=== PATIENT | male | born 1950 | race Caucasian/White ===

== ENCOUNTER 2021-02-12 13:22 | Inpatient (IN) ==
[2021-02-12 14:17] LABS: Basophils % 0.4 % (0.0-0.8); Eosinophils # 0.1 10*3/uL (0.0-0.87); Eosinophils % 1.1 % (0.00-10.9); Hematocrit 42.4 VOL% (42.0-52.0); Hemoglobin 13.7 GM/DL (14.0-18.0); Immature Granulocytes % 0.3 %; Immature Granulocytes Absolute 0.03 #; Lymphocytes # 1.8 10*3/uL (1.4-4.0); Lymphocytes % 18.9 % (21.2-54.2); Mean Corpuscular HGB Conc 32.3 GM/DL (32-36); Mean Corpuscular Volume 92.4 FL (87-102); Mean Platelet Volume 9.4 FL (9.6-12.0); Monocytes % 12.5 % (1.7-12.7); Neutrophils % 66.8 % (38.7-73.9); Platelet Count 307 T/CUMM (130-400); Red Blood Count 4.59 MC/CUMM (3.8-5.5); Red Cell Distribution Width 12.8 % (9.3-17.3); White Blood Count 9.7 T/CUMM (4-12)
[2021-02-12 14:42] LABS: Albumin 3.4 G/DL (3.4-5.0); Bilirubin,Total 0.5 MG/DL (0.20-1.00); Calcium 10.4 MG/DL (8.5-10.1); Potassium 3.6 MMOL/L (3.5-5.1); Thyroid Stimulating Hormone 1.39 uIU/ml (0.358-3.74); Total Protein 7.6 G/DL (6.4-8.2)
[2021-02-12] MEDS ORDERED: DEXAMETHASONE 10 MG/1 ML VIAL IV STA (14:42)
[2021-02-12 14:48] LABS: Folate 22.97 NG/ML (5.38-24.0)
[2021-02-12] MEDS ORDERED: ONDANSETRON 4 MG/2 ML VIAL IV PRN (15:54)
[2021-02-12] MEDS ORDERED: GLUCAGON 1 MG VIAL IM PRN ×2 (15:54→20:39)
[2021-02-12] MEDS ORDERED: DOCUSATE SODIUM 100 MG CAPSULE PO PRN (15:54)
[2021-02-12] MEDS ORDERED: hydrALAZINE 20 MG/1 ML VIAL IV PRN (15:54)
[2021-02-12] MEDS ORDERED: ACETAMINOPHEN 325 MG TABLET PO PRN (15:54)
[2021-02-12] MEDS ORDERED: ALUMINUM/MAGNES/SIMETH MAX STR 30 ML UDCUP PO PRN (15:54)
[2021-02-12] MEDS ORDERED: DEXTROSE 50% 25 GM/50 ML SYRINGE IV PRN (16:03)
[2021-02-12] MEDS ORDERED: LORazepam 2 MG/1 ML VIAL IV PRN (16:44)
[2021-02-12] MEDS: cefTRIAXone 1,000 MG in SODIUM CHLORIDE 0.9% 100 ML IV SCH (16:50)
[2021-02-12] MEDS: SODIUM CHLORIDE 0.9% 1,000 ML IV SCH (17:40)
[2021-02-12] MEDS: AZITHROMYCIN INJ 500 MG in SODIUM CHLORIDE 0.9% 250 ML IV SCH (17:42)
[2021-02-12] MEDS: MULTIVITAMIN (BEROCCA) TABLET PO SCH (17:55)
[2021-02-12] MEDS: THIAMINE 100 MG TABLET PO SCH (17:56)
[2021-02-12] MEDS: ALBUTEROL/IPRATROPIUM 3 ML NEB RESP TX SCH (19:31)
[2021-02-12] MEDS ORDERED: DEXTROSE 50% 25 GM/50 ML VIAL IV PRN (20:39)
[2021-02-12] MEDS: INSULIN REGULAR 100 UNIT/ML SUBCUT SCH (21:00)
[2021-02-12] MEDS: DEXAMETHASONE 4 MG/1 ML VIAL IV SCH (23:12)
[2021-02-12 23:15] LABS: Calcium 9.4 MG/DL (8.5-10.1); Osmolality,Calculated 288.1 MOS/KG (273-304); Potassium 3.7 MMOL/L (3.5-5.1)
[2021-02-13] MEDS: ALBUTEROL/IPRATROPIUM 3 ML NEB RESP TX SCH ×4 (00:50→19:39)
[2021-02-13 06:02] LABS: Basophils % 0.1 % (0.0-0.8); Hematocrit 38.4 VOL% (42.0-52.0); Hemoglobin 12.6 GM/DL (14.0-18.0); Immature Granulocytes % 0.6 %; Immature Granulocytes Absolute 0.06 #; Lymphocytes # 0.8 10*3/uL (1.4-4.0); Lymphocytes % 8.5 % (21.2-54.2); Mean Corpuscular HGB Conc 32.8 GM/DL (32-36); Mean Corpuscular Volume 92.5 FL (87-102); Mean Platelet Volume 9.6 FL (9.6-12.0); Monocytes % 3.4 % (1.7-12.7); Neutrophils % 87.4 % (38.7-73.9); Platelet Count 276 T/CUMM (130-400); Red Blood Count 4.15 MC/CUMM (3.8-5.5); Red Cell Distribution Width 12.6 % (9.3-17.3); White Blood Count 9.6 T/CUMM (4-12)
[2021-02-13] MEDS: SODIUM CHLORIDE 0.9% 1,000 ML IV SCH ×2 (06:03→17:09)
[2021-02-13 06:17] LABS: Albumin 2.8 G/DL (3.4-5.0); Bilirubin,Total 1.3 MG/DL (0.20-1.00); Calcium 9.2 MG/DL (8.5-10.1); Potassium 3.9 MMOL/L (3.5-5.1); Risk Ratio 2.97; Total Protein 6.6 G/DL (6.4-8.2)
[2021-02-13] MEDS: DEXAMETHASONE 4 MG/1 ML VIAL IV SCH ×2 (06:59→15:41)
[2021-02-13] MEDS: MULTIVITAMIN (BEROCCA) TABLET PO SCH (09:28)
[2021-02-13] MEDS: INSULIN REGULAR 100 UNIT/ML SUBCUT SCH ×4 (09:28→22:42)
[2021-02-13] MEDS: PANTOPRAZOLE 40 MG TABLET PO SCH (09:29)
[2021-02-13] MEDS: THIAMINE 100 MG TABLET PO SCH (09:29)
[2021-02-13] MEDS: cefTRIAXone 1,000 MG in SODIUM CHLORIDE 0.9% 100 ML IV SCH (15:42)
[2021-02-13] MEDS: AZITHROMYCIN INJ 500 MG in SODIUM CHLORIDE 0.9% 250 ML IV SCH (17:10)
[2021-02-14] MEDS: ALBUTEROL/IPRATROPIUM 3 ML NEB RESP TX SCH ×4 (00:04→20:35)
[2021-02-14] MEDS: INSULIN REGULAR 100 UNIT/ML SUBCUT SCH ×3 (13:09→21:35)
[2021-02-14] MEDS: MULTIVITAMIN (BEROCCA) TABLET PO SCH (13:09)
[2021-02-14] MEDS: THIAMINE 100 MG TABLET PO SCH (13:10)
[2021-02-14] MEDS: DEXAMETHASONE 4 MG/1 ML VIAL IV SCH ×4 (15:59→23:08)
[2021-02-14] MEDS: SODIUM CHLORIDE 0.9% 1,000 ML IV SCH ×2 (16:01→16:35)
[2021-02-14] MEDS: PANTOPRAZOLE 40 MG TABLET PO SCH (16:01)
[2021-02-14] MEDS: cefTRIAXone 1,000 MG in SODIUM CHLORIDE 0.9% 100 ML IV SCH (16:35)
[2021-02-14] MEDS: AZITHROMYCIN INJ 500 MG in SODIUM CHLORIDE 0.9% 250 ML IV SCH (18:22)
[2021-02-15] MEDS: SODIUM CHLORIDE 0.9% 1,000 ML IV SCH ×2 (01:19→11:05)
[2021-02-15] MEDS: ALBUTEROL/IPRATROPIUM 3 ML NEB RESP TX SCH ×4 (01:40→19:20)
[2021-02-15] MEDS: DEXAMETHASONE 4 MG/1 ML VIAL IV SCH ×2 (06:12→16:10)
[2021-02-15 06:43] LABS: Basophils % 0.1 % (0.0-0.8); Hematocrit 35.6 VOL% (42.0-52.0); Hemoglobin 11.5 GM/DL (14.0-18.0); Immature Granulocytes % 0.7 %; Immature Granulocytes Absolute 0.08 #; Lymphocytes # 0.7 10*3/uL (1.4-4.0); Lymphocytes % 6.1 % (21.2-54.2); Mean Corpuscular HGB Conc 32.3 GM/DL (32-36); Mean Corpuscular Volume 93.4 FL (87-102); Mean Platelet Volume 9.9 FL (9.6-12.0); Monocytes % 5.5 % (1.7-12.7); Neutrophils % 87.6 % (38.7-73.9); Platelet Count 253 T/CUMM (130-400); Red Blood Count 3.81 MC/CUMM (3.8-5.5); Red Cell Distribution Width 13.3 % (9.3-17.3); White Blood Count 11.9 T/CUMM (4-12)
[2021-02-15 06:47] LABS: Total Protein 24 Hr Ur Result 140 MG/24HR (0-149.1); Total Volume,Urine 700 ML (400-2000)
[2021-02-15 06:58] LABS: Albumin 2.7 G/DL (3.4-5.0); Bilirubin,Total 1.1 MG/DL (0.20-1.00); Osmolality,Calculated 288.8 MOS/KG (273-304); Potassium 3.6 MMOL/L (3.5-5.1)
[2021-02-15] MEDS: INSULIN REGULAR 100 UNIT/ML SUBCUT SCH ×4 (08:59→20:45)
[2021-02-15 09:40] LABS: Total Protein (Chem) 7.7 G/DL (6.4-8.3)
[2021-02-15 09:45] LABS: 24 Hr Protein (Bench) 140 MG/24HR (0-149.1)
[2021-02-15 09:47] LABS: INR 1.1
[2021-02-15 11:28] LABS: Albumin (SPE) Rel % 59.5 %; Alpha 1 (SPE) Rel % 4.6 %; Alpha 2 (SPE) Rel % 13.3 %; Beta (SPE) Rel % 9.8 %; Gamma (SPE) Rel % 12.8 %
[2021-02-15 11:33] LABS: Albumin (SPE) 4.6 G/DL (3.2-5.3); Alpha 1 (SPE) 0.4 G/DL (0.1-0.4); Beta (SPE) 0.8 G/DL (0.5-1.1)
[2021-02-15] MEDS ORDERED: DIAZEPAM 5 MG TABLET PO ONE (12:13)
[2021-02-15] MEDS: MULTIVITAMIN (BEROCCA) TABLET PO SCH (15:36)
[2021-02-15] MEDS: PANTOPRAZOLE 40 MG TABLET PO SCH (15:36)
[2021-02-15] MEDS: THIAMINE 100 MG TABLET PO SCH (15:36)
[2021-02-15] MEDS: cefTRIAXone 1,000 MG in SODIUM CHLORIDE 0.9% 100 ML IV SCH (16:10)
[2021-02-15] MEDS: SODIUM CHLORIDE 0.45% 1,000 ML IV SCH (17:28)
[2021-02-15] MEDS: AZITHROMYCIN INJ 500 MG in SODIUM CHLORIDE 0.9% 250 ML IV SCH (18:02)
[2021-02-16] MEDS: DEXAMETHASONE 4 MG/1 ML VIAL IV SCH ×3 (00:14→15:54)
[2021-02-16] MEDS: ALBUTEROL/IPRATROPIUM 3 ML NEB RESP TX SCH ×4 (00:34→20:14)
[2021-02-16] MEDS: SODIUM CHLORIDE 0.9% 1,000 ML IV SCH ×3 (04:35→19:43)
[2021-02-16 06:52] LABS: Basophils % 0.1 % (0.0-0.8); Hematocrit 34.2 VOL% (42.0-52.0); Hemoglobin 11.1 GM/DL (14.0-18.0); Immature Granulocytes % 0.6 %; Immature Granulocytes Absolute 0.08 #; Lymphocytes # 0.7 10*3/uL (1.4-4.0); Lymphocytes % 5.7 % (21.2-54.2); Mean Corpuscular HGB Conc 32.5 GM/DL (32-36); Mean Corpuscular Volume 92.9 FL (87-102); Mean Platelet Volume 10.5 FL (9.6-12.0); Neutrophils % 86.6 % (38.7-73.9); Platelet Count 226 T/CUMM (130-400); Red Blood Count 3.68 MC/CUMM (3.8-5.5); Red Cell Distribution Width 13.3 % (9.3-17.3); White Blood Count 12.9 T/CUMM (4-12)
[2021-02-16 07:01] LABS: Albumin 2.6 G/DL (3.4-5.0); Bilirubin,Total 0.5 MG/DL (0.20-1.00); Calcium 9.1 MG/DL (8.5-10.1); Osmolality,Calculated 287.8 MOS/KG (273-304); Potassium 3.8 MMOL/L (3.5-5.1); Total Protein 5.9 G/DL (6.4-8.2)
[2021-02-16] MEDS: INSULIN REGULAR 100 UNIT/ML SUBCUT SCH ×4 (09:13→20:31)
[2021-02-16] MEDS: MULTIVITAMIN (BEROCCA) TABLET PO SCH (09:46)
[2021-02-16] MEDS: PANTOPRAZOLE 40 MG TABLET PO SCH (09:47)
[2021-02-16] MEDS: THIAMINE 100 MG TABLET PO SCH (09:47)
[2021-02-16] MEDS: SODIUM CHLORIDE 0.45% 1,000 ML IV SCH (14:25)
[2021-02-16] MEDS: cefTRIAXone 1,000 MG in SODIUM CHLORIDE 0.9% 100 ML IV SCH (15:47)
[2021-02-16] MEDS: AZITHROMYCIN INJ 500 MG in SODIUM CHLORIDE 0.9% 250 ML IV SCH (18:24)
[2021-02-16] MEDS: DEXAMETHASONE 4 MG TABLET PO SCH (20:58)
[2021-02-17] MEDS: SODIUM CHLORIDE 0.9% 1,000 ML IV SCH ×3 (00:33→12:51)
[2021-02-17] MEDS: ALBUTEROL/IPRATROPIUM 3 ML NEB RESP TX SCH ×4 (02:45→19:30)
[2021-02-17 05:46] LABS: Basophils % 0.1 % (0.0-0.8); Hematocrit 35.3 VOL% (42.0-52.0); Hemoglobin 11.4 GM/DL (14.0-18.0); Immature Granulocytes % 0.9 %; Lymphocytes # 0.6 10*3/uL (1.4-4.0); Lymphocytes % 5.2 % (21.2-54.2); Mean Corpuscular HGB Conc 32.3 GM/DL (32-36); Mean Corpuscular Volume 93.9 FL (87-102); Mean Platelet Volume 10.1 FL (9.6-12.0); Monocytes % 4.3 % (1.7-12.7); Neutrophils % 89.5 % (38.7-73.9); Platelet Count 232 T/CUMM (130-400); Red Blood Count 3.76 MC/CUMM (3.8-5.5); Red Cell Distribution Width 13.3 % (9.3-17.3); White Blood Count 11.7 T/CUMM (4-12)
[2021-02-17 06:01] LABS: Albumin 2.6 G/DL (3.4-5.0); Bilirubin,Total 0.8 MG/DL (0.20-1.00); Calcium 9.1 MG/DL (8.5-10.1); Potassium 3.7 MMOL/L (3.5-5.1)
[2021-02-17] MEDS: INSULIN REGULAR 100 UNIT/ML SUBCUT SCH ×4 (09:15→21:01)
[2021-02-17] MEDS: DEXAMETHASONE 4 MG TABLET PO SCH ×2 (10:55→21:04)
[2021-02-17] MEDS: PANTOPRAZOLE 40 MG TABLET PO SCH (10:55)
[2021-02-17] MEDS: THIAMINE 100 MG TABLET PO SCH (10:55)
[2021-02-17] MEDS: MULTIVITAMIN (BEROCCA) TABLET PO SCH (10:55)
[2021-02-17] MEDS: SODIUM CHLORIDE 0.45% 1,000 ML IV SCH (12:51)
[2021-02-17] MEDS: cefTRIAXone 1,000 MG in SODIUM CHLORIDE 0.9% 100 ML IV SCH (15:49)
[2021-02-17] MEDS: AZITHROMYCIN INJ 500 MG in SODIUM CHLORIDE 0.9% 250 ML IV SCH (19:02)
[2021-02-18] MEDS: ALBUTEROL/IPRATROPIUM 3 ML NEB RESP TX SCH ×4 (00:06→19:40)
[2021-02-18 05:50] LABS: Basophils % 0.1 % (0.0-0.8); Hematocrit 35.4 VOL% (42.0-52.0); Hemoglobin 11.6 GM/DL (14.0-18.0); Immature Granulocytes % 0.3 %; Immature Granulocytes Absolute 0.04 #; Lymphocytes # 0.6 10*3/uL (1.4-4.0); Lymphocytes % 5.2 % (21.2-54.2); Mean Corpuscular HGB Conc 32.8 GM/DL (32-36); Mean Corpuscular Volume 91.7 FL (87-102); Mean Platelet Volume 10.3 FL (9.6-12.0); Monocytes % 4.6 % (1.7-12.7); Neutrophils % 89.8 % (38.7-73.9); Platelet Count 236 T/CUMM (130-400); Red Blood Count 3.86 MC/CUMM (3.8-5.5); Red Cell Distribution Width 13.2 % (9.3-17.3)
[2021-02-18 06:20] LABS: Albumin 2.6 G/DL (3.4-5.0); Bilirubin,Total 0.8 MG/DL (0.20-1.00); Osmolality,Calculated 284.3 MOS/KG (273-304); Potassium 3.4 MMOL/L (3.5-5.1); Total Protein 5.9 G/DL (6.4-8.2)
[2021-02-18] MEDS: INSULIN REGULAR 100 UNIT/ML SUBCUT SCH ×4 (07:38→21:44)
[2021-02-18] MEDS ORDERED: POTASSIUM CHLORIDE 20 MEQ TABLET PO ONE (08:11)
[2021-02-18] MEDS: DEXAMETHASONE 4 MG TABLET PO SCH ×2 (13:11→20:52)
[2021-02-18] MEDS: MULTIVITAMIN (BEROCCA) TABLET PO SCH (13:11)
[2021-02-18] MEDS: PANTOPRAZOLE 40 MG TABLET PO SCH (13:11)
[2021-02-18] MEDS: THIAMINE 100 MG TABLET PO SCH (13:11)
[2021-02-18] MEDS: cefTRIAXone 1,000 MG in SODIUM CHLORIDE 0.9% 100 ML IV SCH (17:26)
[2021-02-18] MEDS: AZITHROMYCIN INJ 500 MG in SODIUM CHLORIDE 0.9% 250 ML IV SCH (19:41)
[2021-02-18] MEDS: SODIUM CHLORIDE 0.45% 1,000 ML IV SCH (19:43)
[2021-02-19] MEDS: ALBUTEROL/IPRATROPIUM 3 ML NEB RESP TX SCH ×3 (00:25→13:50)
[2021-02-19 04:22] LABS: Hematocrit 34.5 VOL% (42.0-52.0); Hemoglobin 11.4 GM/DL (14.0-18.0); Immature Granulocytes % 0.7 %; Immature Granulocytes Absolute 0.08 #; Lymphocytes # 0.6 10*3/uL (1.4-4.0); Mean Corpuscular Volume 91.5 FL (87-102); Mean Platelet Volume 10.2 FL (9.6-12.0); Monocytes % 3.9 % (1.7-12.7); Neutrophils % 90.4 % (38.7-73.9); Platelet Count 241 T/CUMM (130-400); Red Blood Count 3.77 MC/CUMM (3.8-5.5); Red Cell Distribution Width 13.2 % (9.3-17.3); White Blood Count 11.1 T/CUMM (4-12)
[2021-02-19 04:48] LABS: Albumin 2.5 G/DL (3.4-5.0); Bilirubin,Total 1.2 MG/DL (0.20-1.00); Calcium 8.9 MG/DL (8.5-10.1); Osmolality,Calculated 286.1 MOS/KG (273-304); Potassium 3.7 MMOL/L (3.5-5.1); Total Protein 5.8 G/DL (6.4-8.2)
[2021-02-19] MEDS: SODIUM CHLORIDE 0.45% 1,000 ML IV SCH (05:33)
[2021-02-19] MEDS: INSULIN REGULAR 100 UNIT/ML SUBCUT SCH ×2 (09:54→13:11)
[2021-02-19] MEDS: DEXAMETHASONE 4 MG TABLET PO SCH (09:55)
[2021-02-19] MEDS: THIAMINE 100 MG TABLET PO SCH (09:55)
[2021-02-19] MEDS: MULTIVITAMIN (BEROCCA) TABLET PO SCH (09:55)
[2021-02-19] MEDS: PANTOPRAZOLE 40 MG TABLET PO SCH (09:55)
[2021-02-19 13:48] VITALS: BP 150/80
== END 2021-02-19 15:40 | disposition home health service (06) | DRG 54 ==
LOC: N.ED 13:22 → N.EDINP 15:54 → SUATTDRO 15:54 → N.2E 16:58
PROVIDERS: ADMIT Internal Medicine; ATTEND Internal Medicine

== ENCOUNTER 2021-04-17 08:01 | Inpatient (IN) ==
[2021-04-17] MEDS ORDERED: PANTOPRAZOLE 40 MG VIAL IV STA (08:36)
[2021-04-17 09:26] LABS: Basophils % 0.1 % (0.0-0.8); Hematocrit 39.2 VOL% (42.0-52.0); Hemoglobin 12.7 GM/DL (14.0-18.0); Immature Granulocytes Absolute 0.18 #; Lymphocytes # 0.7 10*3/uL (1.4-4.0); Lymphocytes % 3.5 % (21.2-54.2); Mean Corpuscular HGB Conc 32.4 GM/DL (32-36); Mean Corpuscular Volume 90.5 FL (87-102); Mean Platelet Volume 9.4 FL (9.6-12.0); Monocytes % 8.4 % (1.7-12.7); Platelet Count 373 T/CUMM (130-400); Red Blood Count 4.33 MC/CUMM (3.8-5.5); Red Cell Distribution Width 14.6 % (9.3-17.3); White Blood Count 18.4 T/CUMM (4-12)
[2021-04-17 09:36] LABS: INR 1.2
[2021-04-17 09:50] LABS: Hypochromia 1+; Lymphocytes 3 % (20-55); Microcytosis 1+; Platelet Estimate Adequate; Segmented Neutrophils 91 % (50-85); Total Cells Counted 100
[2021-04-17 09:58] LABS: Albumin 2.7 G/DL (3.4-5.0); Bilirubin,Total 2.1 MG/DL (0.20-1.00); Osmolality,Calculated 292.5 MOS/KG (273-304); Potassium 3.3 MMOL/L (3.5-5.1); Total Protein 6.8 G/DL (6.4-8.2)
[2021-04-17] MEDS ORDERED: SODIUM CHLORIDE 0.9% 1,000 ML IV STA (10:05)
[2021-04-17] MEDS ORDERED: hydrALAZINE 20 MG/1 ML VIAL IV PRN (12:41)
[2021-04-17] MEDS ORDERED: DEXTROSE 10% 250 ML BAG IV PRN (12:41)
[2021-04-17] MEDS ORDERED: GLUCAGON 1 MG VIAL IM PRN (12:41)
[2021-04-17] MEDS ORDERED: ONDANSETRON 4 MG/2 ML VIAL IV PRN (12:41)
[2021-04-17] MEDS ORDERED: ZOLEDRONIC ACID 4 MG/100 ML PREMIX IV ONE (14:10)
[2021-04-17] MEDS: CALCITONIN 400 UNIT/2 ML VIAL SUBCUT SCH (15:09)
[2021-04-17] MEDS: SODIUM CHLOR 0.45% KCL 20 MEQ 20 MEQ/1,000 ML BAG IV SCH ×2 (15:24→22:57)
[2021-04-17] MEDS: PANTOPRAZOLE INJ 200 MG in SODIUM CHLORIDE 0.9% 250 ML IV SCH (15:24)
[2021-04-17 15:59] LABS: Albumin 2.6 G/DL (3.4-5.0); Bilirubin,Total 0.5 MG/DL (0.20-1.00); Osmolality,Calculated 290.5 MOS/KG (273-304); Potassium 3.4 MMOL/L (3.5-5.1); Total Protein 6.1 G/DL (6.4-8.2)
[2021-04-17 16:01] LABS: Calcium 14.1 MG/DL (8.5-10.1)
[2021-04-17 17:45] LABS: Hematocrit 40.6 VOL% (42.0-52.0); Hemoglobin 13.3 GM/DL (14.0-18.0)
[2021-04-17] MEDS ORDERED: LORazepam 2 MG/1 ML VIAL ONE (18:05)
[2021-04-17] MEDS: LORazepam 2 MG/1 ML VIAL IV PRN ×2 (18:05→22:21)
[2021-04-17 22:38] LABS: Hematocrit 37.2 VOL% (42.0-52.0); Hemoglobin 12.2 GM/DL (14.0-18.0)
[2021-04-17 23:28] LABS: Calcium 13.2 MG/DL (8.5-10.1); Osmolality,Calculated 289.4 MOS/KG (273-304); Potassium 4.5 MMOL/L (3.5-5.1)
[2021-04-18] MEDS: SODIUM CHLOR 0.45% KCL 20 MEQ 20 MEQ/1,000 ML BAG IV SCH ×4 (01:56→22:18)
[2021-04-18] MEDS: CALCITONIN 400 UNIT/2 ML VIAL SUBCUT SCH ×2 (05:46→16:31)
[2021-04-18 05:50] LABS: Basophils % 0.1 % (0.0-0.8); Hematocrit 36.9 VOL% (42.0-52.0); Hemoglobin 11.8 GM/DL (14.0-18.0); Immature Granulocytes % 1.2 %; Immature Granulocytes Absolute 0.23 #; Lymphocytes # 0.9 10*3/uL (1.4-4.0); Lymphocytes % 4.6 % (21.2-54.2); Mean Corpuscular Volume 91.1 FL (87-102); Mean Platelet Volume 10.3 FL (9.6-12.0); Monocytes % 9.5 % (1.7-12.7); Neutrophils % 84.6 % (38.7-73.9); Platelet Count 349 T/CUMM (130-400); Red Blood Count 4.05 MC/CUMM (3.8-5.5); Red Cell Distribution Width 14.6 % (9.3-17.3); White Blood Count 18.8 T/CUMM (4-12)
[2021-04-18 06:21] LABS: Hypochromia Slight; Lymphocytes 5 % (20-55); Microcytosis Slight; Platelet Estimate Adequate; Segmented Neutrophils 89 % (50-85); Total Cells Counted 100
[2021-04-18 06:28] LABS: Albumin 2.4 G/DL (3.4-5.0); Bilirubin,Total 0.6 MG/DL (0.20-1.00); Calcium 12.9 MG/DL (8.5-10.1); Osmolality,Calculated 289.1 MOS/KG (273-304); Potassium 3.3 MMOL/L (3.5-5.1); Total Protein 6.2 G/DL (6.4-8.2)
[2021-04-18] MEDS ORDERED: MINERAL OIL ENEMA 133 ML BOTTLE RECTAL ONE (13:07)
[2021-04-18] MEDS ORDERED: BISACODYL 10 MG SUPP RECTAL ONE (13:08)
[2021-04-18] MEDS: POTASSIUM CHLORIDE RIDER 20 MEQ/100 ML PREMIX IV SCH ×3 (15:45→19:46)
[2021-04-18 16:54] LABS: Bilirubin,Urine Negative (Negative); Blood, Urine Small mg/dL (Negative); Glucose,Urine (UA) Negative (Negative); Ketones,Urine 5 mg/dL (Negative); Mucus,Urine Occasional /LPF (Occasional); Nitrite,Urine Negative (Negative); Protein,Urine Negative; RBC,Urine 4 /HPF (0-4); Urine Appearance CLEAR (Clear); Urine Color Yellow (Yellow); Urine Specific Gravity 1.017 (1.001-1.035); Urine Urobilinogen < 2.0 EU/DL (<2.0)
[2021-04-18] MEDS: PANTOPRAZOLE INJ 200 MG in SODIUM CHLORIDE 0.9% 250 ML IV SCH (17:19)
[2021-04-18] MEDS: LORazepam 2 MG/1 ML VIAL IV PRN (21:07)
[2021-04-19] MEDS: SODIUM CHLOR 0.45% KCL 20 MEQ 20 MEQ/1,000 ML BAG IV SCH ×3 (01:11→15:19)
[2021-04-19] MEDS: CALCITONIN 400 UNIT/2 ML VIAL SUBCUT SCH ×2 (04:08→16:54)
[2021-04-19 06:48] LABS: Basophils % 0.1 % (0.0-0.8); Hematocrit 21.5 VOL% (42.0-52.0); Immature Granulocytes % 1.4 %; Immature Granulocytes Absolute 0.28 #; Lymphocytes # 1.2 10*3/uL (1.4-4.0); Lymphocytes % 5.9 % (21.2-54.2); Mean Corpuscular HGB Conc 32.1 GM/DL (32-36); Mean Corpuscular Volume 91.9 FL (87-102); Mean Platelet Volume 10.9 FL (9.6-12.0); Neutrophils % 83.6 % (38.7-73.9); Red Cell Distribution Width 14.9 % (9.3-17.3)
[2021-04-19 06:51] LABS: Hemoglobin 6.9 GM/DL (14.0-18.0); Red Blood Count 2.34 MC/CUMM (3.8-5.5); White Blood Count 20.2 T/CUMM (4-12)
[2021-04-19 06:52] LABS: Platelet Count 253 T/CUMM (130-400)
[2021-04-19 07:12] LABS: Albumin 1.8 G/DL (3.4-5.0); Calcium 9.8 MG/DL (8.5-10.1); Osmolality,Calculated 294.8 MOS/KG (273-304); Potassium 4.8 MMOL/L (3.5-5.1); Total Protein 4.8 G/DL (6.4-8.2)
[2021-04-19] MEDS ORDERED: SODIUM CHLORIDE 0.9% 1,000 ML IV PRN ×3 (07:44→11:58)
[2021-04-19 09:27] LABS: Hematocrit 20.5 VOL% (42.0-52.0); Hemoglobin 6.6 GM/DL (14.0-18.0)
[2021-04-19 09:54] LABS: INR 1.2; PT Patient Result 13.4 SECS (10.5-12.0); Partial Thromboplastin Time 30.5 SECS (23.8-32.1)
[2021-04-19] MEDS ORDERED: LIDOCAINE 2% TOP JELLY 5 ML TUBE TOP ONE (15:13)
[2021-04-19 18:18] LABS: Hematocrit 26.7 VOL% (42.0-52.0); Hemoglobin 8.9 GM/DL (14.0-18.0)
[2021-04-19 20:24] LABS: Hematocrit 26.2 VOL% (42.0-52.0); Hemoglobin 8.8 GM/DL (14.0-18.0)
[2021-04-20] MEDS: PANTOPRAZOLE INJ 200 MG in SODIUM CHLORIDE 0.9% 250 ML IV SCH ×2 (01:38→20:21)
[2021-04-20] MEDS: SODIUM CHLOR 0.45% KCL 20 MEQ 20 MEQ/1,000 ML BAG IV SCH ×4 (01:43→20:20)
[2021-04-20 02:10] LABS: Basophils % 0.2 % (0.0-0.8); Eosinophils % 0.1 % (0.00-10.9); Hematocrit 24.1 VOL% (42.0-52.0); Hemoglobin 8.1 GM/DL (14.0-18.0); Immature Granulocytes % 1.6 %; Lymphocytes # 1.3 10*3/uL (1.4-4.0); Lymphocytes % 6.5 % (21.2-54.2); Mean Corpuscular HGB Conc 33.6 GM/DL (32-36); Mean Corpuscular Volume 90.6 FL (87-102); Monocytes % 8.9 % (1.7-12.7); Neutrophils % 82.7 % (38.7-73.9); Platelet Count 196 T/CUMM (130-400); Red Blood Count 2.66 MC/CUMM (3.8-5.5); Red Cell Distribution Width 14.6 % (9.3-17.3); White Blood Count 19.3 T/CUMM (4-12)
[2021-04-20 02:12] LABS: Albumin 1.7 G/DL (3.4-5.0); Bilirubin,Total 0.7 MG/DL (0.20-1.00); Calcium 8.4 MG/DL (8.5-10.1); Total Protein 4.7 G/DL (6.4-8.2)
[2021-04-20] MEDS: CALCITONIN 400 UNIT/2 ML VIAL SUBCUT SCH ×2 (03:20→20:21)
[2021-04-20] MEDS: PANTOPRAZOLE 40 MG VIAL IV SCH ×2 (09:36→21:08)
[2021-04-20] MEDS ORDERED: LACTULOSE 20 GM/30 ML UDCUP PO ONE (10:51)
[2021-04-20] MEDS ORDERED: PANTOPRAZOLE 40 MG VIAL IV SCH (21:00)
[2021-04-21] MEDS: SODIUM CHLOR 0.45% KCL 20 MEQ 20 MEQ/1,000 ML BAG IV SCH ×2 (03:24→11:19)
[2021-04-21 06:44] LABS: Basophils % 0.1 % (0.0-0.8); Hematocrit 24.1 VOL% (42.0-52.0); Hemoglobin 7.8 GM/DL (14.0-18.0); Immature Granulocytes % 1.7 %; Immature Granulocytes Absolute 0.35 #; Lymphocytes # 0.8 10*3/uL (1.4-4.0); Mean Corpuscular HGB Conc 32.4 GM/DL (32-36); Mean Corpuscular Volume 92.7 FL (87-102); Mean Platelet Volume 10.1 FL (9.6-12.0); Monocytes % 8.6 % (1.7-12.7); Neutrophils % 85.6 % (38.7-73.9); Platelet Count 231 T/CUMM (130-400); Red Cell Distribution Width 14.7 % (9.3-17.3); White Blood Count 20.8 T/CUMM (4-12)
[2021-04-21 07:02] LABS: Albumin 1.7 G/DL (3.4-5.0); Bilirubin,Total 2.1 MG/DL (0.20-1.00); Calcium 7.5 MG/DL (8.5-10.1); Osmolality,Calculated 291.7 MOS/KG (273-304); Potassium 3.9 MMOL/L (3.5-5.1); Total Protein 4.9 G/DL (6.4-8.2)
[2021-04-21 07:10] LABS: Lymphocytes 5 % (20-55); Segmented Neutrophils 89 % (50-85); Total Cells Counted 100
[2021-04-21 07:11] LABS: Hypochromia 1+; Microcytosis 1+; Target Cells Slight
[2021-04-21 07:12] LABS: Platelet Estimate Normal
[2021-04-21] MEDS: POLYETHYLENE GLYCOL POWDER 17 GM PACK PO SCH (09:14)
[2021-04-21] MEDS: PANTOPRAZOLE 40 MG VIAL IV SCH ×2 (09:14→21:06)
[2021-04-21] MEDS ORDERED: SODIUM CHLORIDE 0.9% 1,000 ML IV PRN (09:58)
[2021-04-21] MEDS ORDERED: TUBERCULIN SKIN TEST 0.1 ML SYRINGE INTRADERM ONE (14:12)
[2021-04-22 06:51] LABS: Basophils % 0.2 % (0.0-0.8); Eosinophils % 0.1 % (0.00-10.9); Hematocrit 33.3 VOL% (42.0-52.0); Immature Granulocytes % 1.9 %; Immature Granulocytes Absolute 0.43 #; Lymphocytes # 0.7 10*3/uL (1.4-4.0); Lymphocytes % 3.3 % (21.2-54.2); Mean Corpuscular Volume 90.2 FL (87-102); Mean Platelet Volume 10.2 FL (9.6-12.0); Monocytes % 8.5 % (1.7-12.7); NRBC # 0.02 10*3/uL; Platelet Count 248 T/CUMM (130-400); Red Blood Count 3.69 MC/CUMM (3.8-5.5); Red Cell Distribution Width 14.6 % (9.3-17.3); White Blood Count 22.1 T/CUMM (4-12)
[2021-04-22 06:59] LABS: Albumin 1.8 G/DL (3.4-5.0); Bilirubin,Total 2.5 MG/DL (0.20-1.00); Calcium 7.6 MG/DL (8.5-10.1); Osmolality,Calculated 285.8 MOS/KG (273-304); Potassium 4.7 MMOL/L (3.5-5.1); Total Protein 5.7 G/DL (6.4-8.2)
[2021-04-22 07:02] LABS: Lymphocytes 9 % (20-55); Segmented Neutrophils 86 % (50-85); Total Cells Counted 100
[2021-04-22 07:03] LABS: Hypochromia 1+; Microcytosis 1+; Polychromasia Slight
[2021-04-22] MEDS: POLYETHYLENE GLYCOL POWDER 17 GM PACK PO SCH (10:11)
[2021-04-22] MEDS: PANTOPRAZOLE 40 MG VIAL IV SCH (10:12)
[2021-04-22] MEDS: SODIUM CHLOR 0.45% KCL 20 MEQ 20 MEQ/1,000 ML BAG IV SCH (10:13)
[2021-04-22 13:16] VITALS: BP 115/63
== END 2021-04-22 14:18 | disposition hospice, inpatient (51) | DRG 377 ==
LOC: N.ED 08:01 → N.EDINP 12:41 → SUATTDRO 12:41 → N.TELES 23:05
PROVIDERS: ADMIT Phlebology; ATTEND Internal Medicine